=== PATIENT | female | born 1980 | race African-American/Black ===

== ENCOUNTER 2022-05-25 10:20 | Emergency (ER) | payer MEDICAID ==
[~2022-05-25] VITALS: Ht 167.6 cm; Wt 122.4 kg
[2022-05-25 12:33] LABS: HCG SERUM/URINE (NEG/POS) NEGATIVE (NEGATIVE)
[2022-05-25 12:43] VITALS: BP 125/94
[2022-05-25 12:46] VITALS: BP 153/97
[2022-05-25 13:16] VITALS: BP 151/90
[2022-05-25 13:31] VITALS: BP 150/94
[2022-05-25] MEDS ORDERED: ZYRTEC10 MG PO (13:34)
[2022-05-25] MEDS ORDERED: PREDNISONE20 MG PO (13:34)
[2022-05-25] MEDS ORDERED: PROAIR HFA IN (13:34)
[2022-05-25] MEDS ORDERED: KEFLEX500 MG PO (13:45)
[2022-05-25 14:05] VITALS: BP 150/94
== END 2022-05-25 14:12 | disposition home or self-care (01) ==
LOC: ED 10:20
PROVIDERS: Nurse Practitioner
DX: J45.901 Unspecified asthma with (acute) exacerbation (principal); T81.41XA Infection following a procedure, superficial incisional surgical site, initial encounter; L03.031 Cellulitis of right toe; Y83.8 Other surgical procedures as the cause of abnormal reaction of the patient, or of later complication, without mention of misadventure at the time of the procedure